=== PATIENT | male | born 1975 | race Caucasian/White ===

== ENCOUNTER 2020-06-18 14:32 | Outpatient (CLI) | payer MEDICARE, MEDICAID ==
[~2020-06-18 14:32] MED LIST: BACL20TA PO; FAMO-128 PO; GABA400C PO; OXYC20TA55 PO; [UNRECOGNIZED DRUG - CODE] PO
== END 2020-06-18 23:59 | disposition home or self-care (01) ==
LOC: RAD 14:32
PROVIDERS: ATTEND Internal Medicine Gastroenterology
DX: K21.9 Gastro-esophageal reflux disease without esophagitis (principal); R13.11 Dysphagia, oral phase; R47.1 Dysarthria and anarthria; G35 Multiple sclerosis
CPT/HCPCS: 74230